=== PATIENT | female | born 1960 | race Caucasian/White ===

== ENCOUNTER 2019-08-07 01:24 | Inpatient (IN) ==
[2019-08-07] MEDS ORDERED: REGLAN ONE (07:47)
[2019-08-07] MEDS ORDERED: PEPCID ONE (07:47)
[2019-08-07] MEDS ORDERED: COLACE ONE (07:47)
[2019-08-07] MEDS ORDERED: LYRICA ONE (07:48)
[2019-08-07] MEDS ORDERED: CELEBREX ONE (07:48)
[2019-08-07] MEDS ORDERED: KEFZOL 1 GM/D5W 2 GM/100 ML IVPB ONE (07:48)
[2019-08-07] MEDS ORDERED: LR 1,000 ML ONE (07:48)
[2019-08-07] MEDS ORDERED: MARCAINE 0.25% PF/EPI 1:200,000 ONE (08:04)
[2019-08-07] MEDS ORDERED: DURAMORPH ONE (08:04)
[2019-08-07] MEDS ORDERED: EXPAREL 1.3% ONE (08:04)
[2019-08-07] MEDS ORDERED: TORADOL ONE (08:04)
[2019-08-07] MEDS ORDERED: CYKLOKAPRON 1,000 MG/NS 1,000 MG/100 ML IVPB ONE (08:04)
[2019-08-07] MEDS ORDERED: SODIUM CHLORIDE 0.9% ONE (08:04)
[2019-08-07] MEDS ORDERED: VERSED ONE (08:29)
[2019-08-07] MEDS ORDERED: DIPRIVAN 1% 500 MG/50 ML BOTTLE ONE (08:30)
[2019-08-07] MEDS ORDERED: FENTANYL ONE (08:46)
[2019-08-07] MEDS ORDERED: NEO-SYNEPHRINE ONE (09:14)
[2019-08-07] MEDS ORDERED: ROBINUL ONE (09:17)
[2019-08-07] MEDS ORDERED: DIPRIVAN 1% ONE (10:02)
[2019-08-07] MEDS ORDERED: OFIRMEV 1000 MG/ISOTONIC SOLN 1,000 MG/100 ML BOTTLE ONE (10:05)
[2019-08-07] MEDS ORDERED: ZOFRAN ONE (10:15)
[2019-08-07] MEDS ORDERED: DECADRON ONE (10:15)
[2019-08-07 11:26] LABS: URINE SOURCE CATH
[2019-08-07] MEDS ORDERED: NS 1,000 ML ONE (11:27)
[2019-08-07 11:33] LABS: BILIRUBIN URINE NEGATIVE (NEGATIVE); BLOOD URINE NEGATIVE (NEGATIVE); COLOR YELLOW; GLUCOSE URINE NEGATIVE (NEGATIVE); KETONE URINE NEGATIVE (NEGATIVE); LEUKOCYTES URINE NEGATIVE (NEGATIVE); NITRITE URINE NEGATIVE (NEGATIVE); PROTEIN URINE NEGATIVE (NEGATIVE); SP GRAVITY URINE 1.016; TURBIDITY URINE CLEAR (CLEAR); UR EPITHELIAL CELLS <10 /HPF (<10); URINE BACTERIA NEGATIVE /HPF; URINE RBC <10 /HPF (<10); URINE WBC <10 /HPF (<10); UROBILINOGEN URINE NORMAL (NORMAL)
[2019-08-07] MEDS: NS 1,000 ML IV SCH (13:06)
[2019-08-07] MEDS ORDERED: ZOFRAN ODT PO PRN (13:15)
[2019-08-07] MEDS ORDERED: MORPHINE IV PRN ×3 (13:15)
[2019-08-07] MEDS: ULTRAM PO SCH ×2 (13:32→21:11)
[2019-08-07] MEDS ORDERED: CYKLOKAPRON 1,000 MG in NS 100 ML IV ONE (15:00)
[2019-08-07] MEDS: TYLENOL PO SCH ×2 (16:08→22:36)
[2019-08-07] MEDS: KEFZOL 2 GM/D5W 2 GM/50 ML IVPB IV SCH (16:40)
[2019-08-07] MEDS: OXY IR PO PRN ×2 (18:45→22:36)
[2019-08-07] MEDS: CELEBREX PO SCH (21:14)
[2019-08-07] MEDS: COLACE PO SCH (21:14)
[2019-08-07] MEDS: PERIDEX MT SCH (21:14)
[2019-08-08] MEDS: KEFZOL 2 GM/D5W 2 GM/50 ML IVPB IV SCH (00:03)
[2019-08-08] MEDS: NS 1,000 ML IV SCH ×2 (00:04→08:52)
[2019-08-08 06:49] LABS: HEMATOCRIT 29.7 % (37.0-47.0); HEMOGLOBIN 9.4 g/dL (12.0-16.0)
[2019-08-08] MEDS: OXY IR PO PRN ×3 (06:56→15:49)
[2019-08-08] MEDS ORDERED: SYNTHROID PO SCH (07:00)
[2019-08-08 07:16] LABS: AGAP 9; BUN 14 mg/dL (8-22); CALCIUM 8.6 mg/dL (8.8-10.2); CHLORIDE 103 mmol/L (98-107); COSMO 276; CREATININE 0.8 mg/dL (0.5-0.9); ESTIMATED GFR > 60; GLUCOSE 137 mg/dL (70-104); POTASSIUM 4.2 mmol/L (3.5-5.1); SODIUM 137 mmol/L (136-145); TCO2 25 mmol/L (25-35)
[2019-08-08] MEDS: ULTRAM PO SCH ×3 (07:39→13:18)
[2019-08-08] MEDS: COLACE PO SCH (08:10)
[2019-08-08] MEDS: PERIDEX MT SCH (08:10)
[2019-08-08] MEDS: CELEBREX PO SCH (08:12)
[2019-08-08] MEDS: TYLENOL PO SCH ×3 (08:13→09:50)
[2019-08-08] MEDS ORDERED: WELLBUTRIN XL PO SCH (09:00)
[2019-08-08] MEDS ORDERED: PEPCID PO SCH (09:00)
[2019-08-08] MEDS ORDERED: LEXAPRO PO SCH (09:00)
[2019-08-08] MEDS ORDERED: ASPIRIN PO SCH (09:00)
[2019-08-08] MEDS ORDERED: SINGULAIR PO SCH (09:00)
[2019-08-08] MEDS: ZOFRAN IV PRN ×2 (09:51→15:49)
[2019-08-08 12:48] VITALS: BP 109/95
== END 2019-08-08 16:23 | disposition home or self-care (01) | DRG 470 ==
LOC: SURHOLD 01:24 → 4N 10:02
PROVIDERS: ADMIT Orthopaedic Surgery Adult Reconstructive Orthopaedic Surgery; ATTEND Orthopaedic Surgery Adult Reconstructive Orthopaedic Surgery

== ENCOUNTER 2019-08-17 14:28 | Day surgery (SDC) ==
[2019-08-17 15:36] LABS: HEMOGLOBIN 8.6 g/dL (12.0-16.0); MCH 30.6 PG (27-31); MCHC 30.7 g/dL (33-37); MCV 99.6 FL (81-99); MPV 7.9 FL (7.4-10.4); RBC 2.81 XMIL (4.2-5.4); RDW 18.2 % (11.5-14.5); WBC 13.02 X1000 (4.8-10.8)
[2019-08-17] MEDS ORDERED: NS 500 ML ONE (17:02)
[2019-08-17 20:29] VITALS: BP 138/70
== END 2019-08-17 20:33 | disposition home or self-care (01) ==
LOC: INF 14:28 → 3N 15:25 → INTOOBSV 15:25 → INF 20:33
PROVIDERS: ATTEND Orthopaedic Surgery Adult Reconstructive Orthopaedic Surgery

== ENCOUNTER 2019-10-17 13:41 | Inpatient (IN) ==
[2019-10-17] MEDS ORDERED: ZOFRAN IV PRN (14:46)
[2019-10-17] MEDS ORDERED: NS 1,000 ML IV ONE (14:46)
[2019-10-17] MEDS ORDERED: NORCO-7.5 PO PRN (14:46)
[2019-10-17] MEDS ORDERED: TYLENOL PO PRN (14:46)
[2019-10-17] MEDS ORDERED: NS 1,000 ML IV SCH (15:00)
--- NOTE | 2019-10-17 15:01 | EKG Report ---
Test Performed on : 10/17/2019 2:52:36 PM Test Reason : chest pain Blood Pressure : / mmHG Vent. Rate : 079 BPM Atrial Rate : 079 BPM P-R Int : 134 ms QRS Dur : 090 ms QT Int : 362 ms P-R-T Axes : 046 020 046 degrees QTc Int : 415 ms Normal sinus rhythm. Normal ECG No previous ECGs available Confirmed by Te Kerr MD ([id number]) on 10/18/2019 8:41:02 AM
[2019-10-17] MEDS ORDERED: BENADRYL CREAM TOP PRN (15:26)
[2019-10-17 15:44] LABS: BASO# 0.12 X1000 (0.0-0.2); BASO% 1.7 % (0.0-0.8); EOS# 1.01 X1000 (0.0-0.7); HEMATOCRIT 33.7 % (37.0-47.0); HEMOGLOBIN 10.2 g/dL (12.0-16.0); LYMPH# 0.46 X1000 (1.2-3.4); LYMPH% 6.4 % (20.5-51.1); MCH 26.8 PG (27-31); MCHC 30.3 g/dL (33-37); MCV 88.5 FL (81-99); MONO# 0.61 X1000 (0.11-0.59); MONO% 8.4 % (1.7-9.3); MPV 8.5 FL (7.4-10.4); NEUT# 5.04 X1000 (1.4-6.5); NEUT% 69.5 % (42.2-75.2); PLT 351 X1000 (130-400); RBC 3.81 XMIL (4.2-5.4); RDW 15.1 % (11.5-14.5); WBC 7.24 X1000 (4.8-10.8)
[2019-10-17 16:02] LABS: INR 0.98; PROTIME 13.1 Seconds (11.0-16.0)
--- NOTE | 2019-10-17 16:02 | Diag Imaging Result Doc PS360 ---
EXAM: CHEST-2 VIEWS 10/17/2019 HISTORY: fever TECHNIQUE: Two views the chest COMMENT: There is a PICC line on the left with its tip in the superior vena cava. The heart size and primary vascularity are within normal limits. Compared to 09/05/2013 considering differences in technique there has been no significant change. IMPRESSION: No acute disease. Electronically signed by Kendall Mccoy 10/17/2019 3:59 PM
[2019-10-17 16:03] LABS: PTT 31.4 Seconds (22.3-41.8)
[2019-10-17 16:32] LABS: ALB/GLOB RATIO 1.4; ALBUMIN 3.6 g/dL (3.5-5.0); CALCIUM 8.7 mg/dL (8.8-10.2); CREATININE 3.2 mg/dL (0.5-0.9); MAGNESIUM 1.8 mg/dL (1.5-2.7); POTASSIUM 4.5 mmol/L (3.5-5.1); TOTAL BILIRUBIN 0.16 mg/dL (0.20-1.00); TOTAL PROTEIN 6.1 g/dL (6.3-8.3)
--- NOTE | 2019-10-17 16:49 | Diag Imaging Result Doc PS360 ---
EXAM: US RENAL 2 (RETROPER) COMPLETE 10/17/2019 HISTORY: rock TECHNIQUE: Renal ultrasound COMMENT: The study is suboptimal technically. This is presumably due to the patient's body habitus. The kidneys are 11.7 x 5.9 x 7.2 cm on the right and 13.3 x 6.8 x 7.1 cm on the left. There is no evidence of hydronephrosis or mass. The bladder is apparently empty and is not visualized. IMPRESSION: No evidence of obstructive uropathy. Electronically signed by Kendall Mccoy 10/17/2019 4:47 PM
[2019-10-17 18:14] LABS: URINE SOURCE CLEAN CATCH
[2019-10-17 18:33] LABS: UR SODIUM 45 mmoll; UR UREA NITROGEN RANDOM 252 mg/dL
[2019-10-17 18:37] LABS: UR CREAT RANDOM 59.4 mg/dL (11-20); UR PROT RANDOM 21.9 mg/dL
[2019-10-17 18:38] LABS: BILIRUBIN URINE NEGATIVE (NEGATIVE); BLOOD URINE NEGATIVE (NEGATIVE); COLOR YELLOW; GLUCOSE URINE NEGATIVE (NEGATIVE); KETONE URINE NEGATIVE (NEGATIVE); LEUKOCYTES URINE NEGATIVE (NEGATIVE); NITRITE URINE NEGATIVE (NEGATIVE); PROTEIN URINE 30 mg/dL (NEGATIVE); SP GRAVITY URINE 1.009; TURBIDITY URINE CLEAR (CLEAR); UROBILINOGEN URINE NORMAL (NORMAL)
[2019-10-17 18:39] LABS: UR EPITHELIAL CELLS <10 /HPF (<10); URINE BACTERIA NEGATIVE /HPF; URINE RBC <10 /HPF (<10); URINE WBC <10 /HPF (<10)
--- NOTE | 2019-10-17 19:11 | HISTORY AND PHYSICAL ---
CHIEF COMPLAINT: Fever, soreness in the throat, and chills. 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 In the emergency room, she was found to be afebrile. She had diffuse rash involving entire body surface area and marked eosinophilia, so the hospitalist team was consulted for further management. The patient underwent right hip anterior arthroplasty for degenerative joint disease in July 2019. Her postoperative course was complicated by wound dehiscence requiring wound VAC, which later on the wound started draining, requiring debridement and irrigation of the right total hip with implantation of antibiotic beads on 09/14/2019, though the wound culture only grew diphtheroids. Considering she had drainage from the wound, she was started on long-term intravenous antibiotics by Infectious Disease team through left-sided PICC line. When patient was inside the hospital in August 2019, initially she received a couple doses of intravenous daptomycin which was later on changed to intravenous vancomycin and intravenous cefepime at the time of discharge. The patient has been on intravenous vancomycin and cefepime since then, until around 10/08/2019 when the blood work detected she had acute kidney injury with a rise in creatinine. At that point, her vancomycin was stopped and she was started on intravenous daptomycin. However, right after receiving one dose of intravenous daptomycin, she started developing generalized body rash, so both daptomycin and cefepime where stopped. Her last dose of intravenous vancomycin was around 10/08/2019. Last dose of intravenous daptomycin and intravenous cefepime have been around 10/10/2019. The rash was involving the entire body surface area and was itchy. Charisse Diana did try intravenous dexamethasone 24 hours prior to presentation which did not help with the rash. This morning, she started developing fever and chills, so decided to come to the hospital. She denies any sick contacts. She denies any upper respiratory infection related symptoms except mild soreness in the throat. She denies any such episodes before. She denies any chest pain or shortness of breath. REVIEW OF SYSTEMS: Negative for chest pain. Negative for shortness of breath. Negative for cough. Positive for nausea. Positive for episode of vomiting yesterday. Negative for abdominal pain. Negative for burning urination. Negative for increased frequency of micturition. Positive for diarrhea. Positive for headache. PAST MEDICAL HISTORY: 1. Hypothyroidism. 2. Depression. 3. Overactive bladder. PAST SURGICAL HISTORY: 1. Cholecystectomy. 2. Left mandibular salivary gland surgery. 3. Tonsillectomy. SOCIAL HISTORY: Denies any tobacco use. Drinks alcohol occasionally. Last drink was 2 months ago. Denies recreational substance use. Works as a physician. FAMILY HISTORY: I did not obtain. CURRENT MEDICATIONS: 1. Levothyroxine 150 mcg daily. 2. Bupropion extended release 300 mg daily. 3. Citalopram 10 mg daily. 4. Myrbetriq 25 mg daily. MEDICATION ALLERGIES: Likely daptomycin, vancomycin, and cefepime. CURRENT VITAL SIGNS: Temperature 99.4 degrees, pulse 88, respiratory rate 18, blood pressure 138/90, saturating well on room air. PHYSICAL EXAMINATION: GENERAL: Not in any acute distress. ORAL CAVITY: Oral cavity has mild pharyngeal congestion. No cervical lymphadenopathy. LUNGS: Air entry bilaterally equal. No wheeze or crackles. HEART: S1, S2 normal. No murmur or gallop. ABDOMEN: Soft, nontender. Active bowel sounds. No hepatosplenomegaly. EXTREMITIES: Mild lower extremity edema. SKIN: She has diffuse maculopapular pruritic rash affecting bilateral upper extremities, lower extremities, and torso. NEUROLOGIC: She is alert and oriented x3. She has been able to reposition herself in the bed. LABS: WBC of 7000, hemoglobin of 10.2, platelet count of 351,000. Marked eosinophilia of 14%. She does have INR of 0.9. BUN is 29, creatinine 3.2. ProBNP is 2400. MICROBIOLOGY: No positive data so far. ASSESSMENT AND PLAN: 1. Fever, diffuse maculopapular pruritic rash, and chills. Differential includes bacteremia versus other etiology. The potential source of bacteremia could be right hip joint. However, she denies any worsening right hip joint pain. She has been fairly active. There is no increasing drainage from the right hip joint wound site on my evaluation. There appears to be mild induration in the right lateral thigh wound. Drug reaction with eosinophilia with systemic symptoms. DRESS (Drug reaction with Eosinophilia and Systemic Symptoms) syndrome is also a possibility considering the timing of her rash 2 weeks later and systemic symptoms. 2. Right anterior hip arthroplasty in July 2019, complicated by wound dehiscence and drainage. Her last dose of antibiotics was a week ago. I will follow up with blood cultures. I will hold off antibiotics for now. I will start antibiotics if she has bacteremia or recurrence of fever. Possible antibiotic choices could be intravenous Zyvox, intravenous Levaquin, or a combination of both. Intravenous aztreonam is also a possibility. I will avoid vancomycin, cephalosporins, and daptomycin at the moment. 3. Diffuse maculopapular rash with eosinophilia. This is drug rash. Daptomycin is the most likely culprit. However, she still has elevated vancomycin trough level and she has been on intravenous cefepime. I will avoid those antibiotics, and start her on oral prednisone as well as oral Benadryl. 4. Acute Kidney failure, likely thought to be related to vancomycin induced nephrotoxicity. I will follow up with urine electrolytes and ultrasound kidneys. She also has history of overactive bladder but denies any urinary retention. 5. Hypothyroidism. 6. Depression. 7. Overactive bladder. I will resume her home medication. Plan of care was extensively discussed with Dr. Ortiz. All of her questions were satisfactorily answered. I will also consult Nephrology, Orthopedics, and Infectious Disease. cc: Rosalino Rose MD MTDD
--- NOTE | 2019-10-17 19:49 | INFECTIOUS DISEASE PROGRESS NO ---
DATE: 10/17/2019 HISTORY OF PRESENT ILLNESS: The patient has a history of right total hip replacement for degenerative joint disease, done in July by Dr. Estevez. Subsequently, she developed hematoma with wound dehiscence and had a debridement with antibiotic bead placement done on 09/14/2019. That day, we inserted a PICC line and started her on daptomycin which she received for the weekend until we determined that diphtheroids had grown from her right hip. On 09/17/2019, we stopped the daptomycin and started her on IV vancomycin which she continued through 10/08/2019. On 09/20/2019, she came into our office very upset because there was a lot of drainage from her hip. We took a swab which showed no growth, and on 09/24/2019 we added cefepime to her IV regimen to go along with the vancomycin. On 10/08/2019, we stopped her vancomycin due to a spike in her creatinine and started her back on daptomycin. Then, on 10/10/2019, she developed a rash to her left upper arm and trunk. At that time, we stopped all antibiotics and started giving her IV fluids to try to bring down her elevated creatinine. She has been without any antibiotics since 10/10/2019. A subsequent check of her creatinine showed a continued elevation, so we got Dr. العلي involved in her care. Today, she called stating there was a sudden bout of shaking chills with a temperature of 101 degrees, so we direct admitted her to the hospital. At this point, she has a diffuse erythematous rash from head to toe. There is concern for the possibility of drug fever. However, the patient has had a hip replacement with previous dehiscence and drainage, so this may be a hip infection causing the fever. MEDICATIONS: As mentioned above, the patient has received daptomycin, cefepime, and vancomycin. Due to her elevated creatinine, a recheck of her vancomycin trough 1 week after stopping the vancomycin showed a continued elevation in her trough level, at 17.8. PHYSICAL EXAMINATION: Vital Signs: Temperature is 99.4 degrees, pulse rate 88, respiratory rate 15, blood pressure 138/90. O2 saturation is 100% on room air. General: This is an obese, middle- aged female. She is lying in the bed, currently complaining of some nausea and itching from her rash. HEENT: Atraumatic, normocephalic. Oral mucous membranes are pink and moist. Conjunctivae are pink. Neck: Supple. Trachea is midline. Cardiovascular: Heart rate is regular. S1, S2 noted. Respiratory: Lung sounds are bilaterally clear to auscultation. No work of breathing is noted. Abdomen: Soft, obese, and nontender. Bowel sounds are active. Neurologic: She is awake, alert, oriented, and able to ambulate independently. Integumentary: Skin is warm and dry with an erythematous diffuse rash noted from head to toe. There is a PICC line in place to her left upper arm. That site is without edema, erythema, or drainage. The incision to her right hip has 2 small areas that are just mildly open. One has a dry white wound bed, and the other has a mild white/red wound bed with mild, pink drainage. LABORATORY AND X-RAY: Today, her white count is 7.24, hemoglobin 10.2, platelet count 351,000. Creatinine is 3.2. GFR is 15. Total bilirubin is 0.16. AST 26, ALT 32, alkaline phosphatase 77. Creatine kinase is 38. Vancomycin trough from 2 days ago was 17.8. Renal ultrasound done today shows no evidence of obstructive uropathy. An EKG shows normal sinus rhythm on the unconfirmed report. Chest x-ray done today shows no acute disease. Blood cultures and throat culture are pending. A rapid throat group A strep antigen was negative. 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 Dr. العلي and Dr. Estevez have been consulted. I have taken a culture of her right hip incision. Dr. Rose and I agree that holding antibiotics and awaiting the culture results would be reasonable at this point. COMORBIDITIES: for the patient include obesity, degenerative joint disease, and depression with anxiety. Dictated by RANI Rick for Isaiah Murcia MD cc: Isaiah Murcia MD [facility]
--- NOTE | 2019-10-17 20:00 | NEPHROLOGY CONSULTATION ---
DATE: 10/17/2019 REASON FOR CONSULTATION: Acute kidney injury. 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 She has a history of hypertension, but this problem has resolved with weight loss. Her recent history has been complicated. She underwent total hip arthroplasty for management of osteoarthritis, unfortunately developed a wound infection that required multiple antibiotics and ultimately surgery in late August. Her medication history is summarized by Pinky Spaulding. She most recently was taking vancomycin, cefepime. Her creatinine was normal as recently as October 01, but on October 08, her creatinine ta to 2.3. Vancomycin level was elevated on the to 67.8. This medication was changed to daptomycin and the cefepime was continued. She developed a diffuse maculopapular rash which is confluent across the chest and abdomen. Intensely pruritic. No purpura. No vesicles. I discussed the case with Dr. Ortiz on the telephone as well as with Pinky Spaulding, and we had a plan to monitor her renal function with the presumption that her kidney disease was related to vancomycin. Her urinalysis performed in the office had minimal urine protein and red blood cells. Today, she was able to work, but ultimately developed a fever with rigors and therefore was brought to the emergency room for admission. PAST MEDICAL HISTORY: As above. HOME MEDICATIONS: Include levothyroxine, bupropion, celecoxib, escitalopram, montelukast, hydrocodone, ibuprofen. ALLERGIES: None. SOCIAL HISTORY: Not otherwise contributory. FAMILY HISTORY: Not otherwise contributory. REVIEW OF SYSTEMS: Not otherwise contributory. PHYSICAL EXAMINATION: Blood pressure 138/90, heart rate 88, respirations 15, temperature 99.4 degrees.General: Middle-aged, white female, lying in bed in no distress. Skin: Warm and dry with a diffuse and confluent maculopapular rash worse on the trunk. Again, no vesicles, no palpable purpura. No desquamation in the mouth or of the skin. Pupils are equal. Conjunctivae are pink. Oropharynx is clear. Normal tongue. Normal teeth. Neck: Supple. Trachea is midline. Neck vein distention is present with hepatojugular reflux. PMI nondisplaced. Regular rate and rhythm with no murmurs, rubs, gallops. Lungs: Equal excursion. Equal breath sounds. No crackles or wheezes. No accessory muscle use or retractions. Abdomen: Soft, nontender. Bowel sounds are present. No organomegaly, masses, bruits. Extremities: Trace to 1+ edema. No clubbing or cyanosis. Neurologic: Grossly nonfocal. IMPRESSION/PLAN: Acute kidney injury. Vancomycin-induced, nephrotoxic acute tubular necrosis seems the most likely diagnosis. Her creatinine peaked on the 24th, and has improved slightly to 3.2. However, given her rash, it is concerning that she could have allergic interstitial nephritis, which could perhaps require steroids for treatment. We will recheck UA and urine protein. Nonsteroidals have been discontinued. Vancomycin is discontinued. Cefepime is discontinued. Consider renal biopsy. cc: Issa العلي MD
[2019-10-17] MEDS: HYDROCORTISONE 2.5% LOTION TOP SCH (22:15)
[2019-10-17] MEDS: BENADRYL PO PRN (22:15)
[2019-10-18 06:58] LABS: BASO# 0.05 X1000 (0.0-0.2); BASO% 0.5 % (0.0-0.8); EOS# 1.11 X1000 (0.0-0.7); EOS% 11.6 % (0.0-10.0); HEMATOCRIT 36.1 % (37.0-47.0); HEMOGLOBIN 11.1 g/dL (12.0-16.0); IMM GRAN# 0.04 X1000 (0.0-0.04); IMM GRAN% 0.4 % (0.0-0.5); LYMPH# 0.57 X1000 (1.2-3.4); MCH 27.3 PG (27-31); MCHC 30.7 g/dL (33-37); MCV 88.7 FL (81-99); MONO# 0.56 X1000 (0.11-0.59); MONO% 5.9 % (1.7-9.3); MPV 8.5 FL (7.4-10.4); NEUT# 7.21 X1000 (1.4-6.5); NEUT% 75.6 % (42.2-75.2); PLT 355 X1000 (130-400); RBC 4.07 XMIL (4.2-5.4); RDW 15.6 % (11.5-14.5); WBC 9.54 X1000 (4.8-10.8)
[2019-10-18] MEDS: BENADRYL PO PRN (07:01)
[2019-10-18] MEDS: SYNTHROID PO SCH (07:01)
[2019-10-18 07:41] LABS: ALBUMIN 2.9 g/dL (3.5-5.0); CALCIUM 8.5 mg/dL (8.8-10.2); CREATININE 3.5 mg/dL (0.5-0.9); PHOSPHORUS 3.8 mg/dL (2.7-4.5); POTASSIUM 4.9 mmol/L (3.5-5.1)
[2019-10-18] MEDS: HYDROCORTISONE 2.5% LOTION TOP SCH ×3 (07:55→21:49)
[2019-10-18] MEDS ORDERED: PREDNISONE PO SCH (09:00)
[2019-10-18] MEDS: LEXAPRO PO SCH (09:34)
[2019-10-18] MEDS: MYRBETRIQ E.R. PO SCH (09:34)
[2019-10-18] MEDS: WELLBUTRIN SR PO SCH (09:34)
--- NOTE | 2019-10-18 10:33 | Extremity Venous Study ---
PROCEDURE NAME: Venous U/S Bilateral Legs - 10/17/2019 QUALITY CONTROL OPERATOR: Amanda. REQUESTING PHYSICIAN: Dr. Mendoza. INDICATIONS: Elevated D-dimer 1 month postoperative and allergic reaction. FINDINGS: Deep superficial veins of bilateral lower extremities were visualized along their course. Vessels are compressible with forward flow and no evidence intraluminal thrombus. SUMMARY: No deep or superficial venous thrombosis seen in bilateral lower extremities. cc: MD Yulissa Willoughby CRNP
--- NOTE | 2019-10-18 12:59 | ORTHOPAEDICS CONSULTATION ---
DATE: 10/18/2019 CHIEF COMPLAINT: Fever with sore throat and chills. HISTORY OF PRESENT ILLNESS: This is a 59-year-old female with a past medical history of hypothyroidism, depression, overactive bladder, recent right hip anterior arthroplasty back in July that she has been having problems with and becoming infected. She has been treated with Infectious Disease with multiple antibiotics. The wound has begun healing and has almost healed up. She started running a fever up to about 101 degrees and came to the emergency department to be evaluated. Her last vancomycin was around 10/08/2019. Orthopedics was consulted to come see the patient. REVIEW OF SYSTEMS: Twelve point review of systems were performed. Pertinent positives listed in the HPI. She also presented with a rash on her entire body. PAST MEDICAL HISTORY: Listed in the HPI. PAST SURGICAL HISTORY: She has had a cholecystectomy, left mandibular salivary gland surgery, tonsillectomy, right total hip arthroplasty. SOCIAL HISTORY: Denies tobacco or drug use. Drinks alcohol occasionally. MEDICATIONS: She takes levothyroxine 150 mcg daily, Wellbutrin 300 mg daily, citalopram 10 mg daily, Myrbetriq 25 mg daily. ALLERGIES: She is likely allergic to daptomycin, vancomycin, and cefepime. PHYSICAL EXAMINATION: Vital Signs: Temperature 99.6 degrees, pulse rate 93, respiratory rate 16, blood pressure 144/76, oxygen saturation 98% on room air. General: The patient is awake, alert, sitting on his bed, in no acute distress. HEENT: Head is atraumatic, normocephalic. Eyes are equal, round, reactive. Neck: Supple. Chest: Equal chest expansion, rise and fall. Cardiovascular: There is regular rate and rhythm. Abdomen: Soft, nontender. Extremities: Right lower extremity exam, her incision from the right total hip arthroplasty seems to be healing. There are 2 small areas that are still not fully dried up at this time. There is no palpable abscess. There is minimal drainage. Skin: There is a diffuse maculopapular rash to the bilateral upper and lower extremities as well as her abdomen and back. LABORATORY DATA: White blood cells 9.54, red blood cell 4.07, hemoglobin 11.1, hematocrit 36.1, platelets 355,000. Her D-dimer was elevated at 1.91. INR 0.98. Sodium 135, potassium 4.9, chloride 104, carbon dioxide 19, BUN 29, creatinine 3.5, calcium is 8.5, albumin is 2.9. Urine random creatinine is 59.4. DIAGNOSTICS: Ultrasound of bilateral legs was negative for DVT. Chest x-rays showed no acute disease pattern. Renal ultrasound showed no evidence of obstructed uropathy. ASSESSMENT: Fever with diffuse red maculopapular rash to entire body and possible reaction from vancomycin, right total hip arthroplasty recent infection, kidney failure. PLAN: At this time, her wound seems to be healing nicely with 2 small areas that are still needing to be dried up. There is no obvious reason to aspirate the hip at this time. The maculopapular rash is probably due to the vancomycin. We will obtain a vancomycin trough and get her level today. We would be comfortable using antihistamines to help control her rash. We strongly recommend against using steroids at this time because of the possibility of her infection to come back in the hip. If this is needed to improve her kidney function, then it may be considered, risks versus benefits. We will need to see her in the office Tuesday or Tuesday for a recheck on her hip. Dictated by RANI Hoang for Jordon Estevez MD cc: RANI Hoang MD
--- NOTE | 2019-10-18 13:19 | PROGRESS NOTE ---
DATE: 10/18/2019 INTERVAL HISTORY: No acute events overnight. She did have a temperature of 99.9 degrees early in the morning. 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 She complains of generalized itching. Her nausea is better. She has not had any vomiting or abdominal pain. She has not had any bowel movements. We discussed about DRESS syndrome. We discussed about possible etiologies of the kidney failure. We discussed about starting high-dose prednisone and I answered all of her questions. VITAL SIGNS: Temperature 99.6 degrees, pulse 93, respiratory 16, blood pressure 144/76. She is saturating 98% on room air. 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 Oral cavity is moist. Lungs: Air entry bilaterally equal. No wheeze or crackles. S1, S2 normal. No murmur or gallop. Abdomen: Soft, nontender. Extremities: Mild lower extremity edema. Neurologic: She is alert and oriented x3. LABS: Suggestive of no leukocytosis. Hemoglobin of 11.1. She does have persistent eosinophilia. Creatinine of 3.5, albumin of 2.9. ProBNP of 2400 yesterday. Microbiology: No positive data so far. IMAGING: Renal ultrasound performed yesterday did not have any evidence of obstructive uropathy. Extremity venous studies performed yesterday did not have any DVT or SVT in bilateral lower extremities. ASSESSMENT AND PLAN: 1. Drug reaction with eosinophilia and systemic symptoms. DRESS (drug rash with eosinophilia and systemic symptoms) syndrome likely in the setting of use of intravenous antibiotics; vancomycin could be culprit. She was also on intravenous cefepime and daptomycin. I will start her on low dose oral steroids and follow-up eosinophilia. I will also treat her symptomatically with Benadryl, as needed. 2. Fever. This could be in the setting of DRESS (drug rash with eosinophilia and systemic symptoms) syndrome versus bacteremia. Right lateral thigh previous arthroplasty wound has not had increasing drainage and she denies any undue pain. I will follow up with final blood culture data. If she develops fever, then I would consider starting her on intravenous Zyvox and intravenous Levaquin. 3. Acute kidney injury with elevated vancomycin trough level outpatient. Acute tubular necrosis versus allergic interstitial nephritis are possibilities. Urine eosinophil smear was unremarkable. Appreciate Nephrology recommendations. Ultrasound of the renals was also unremarkable. 4. Others. Continue home levothyroxine for hypothyroidism, bupropion and escitalopram for history of depression, mirabegron for history of overactive bladder. DISPOSITION: Monitor patient inside the hospital as we await final blood culture results and recurrence of fever. 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 All of her questions have been satisfactorily answered. cc: MD ROBYN Turner
[2019-10-18] MEDS: PREDNISONE PO SCH (13:50)
--- NOTE | 2019-10-18 16:30 | PROVIDER PROGRESS NOTE ---
Progress Note Subjective: Voices generalized itching. She denies shortness of breath or chest pain. Objective: temperature 99.6, pulse 93, respirations 16, blood pressure 144/76, 02 sat 98% on room air. General: Obese White female lying in bed in no acute distress. HEENT: normocephalic, atraumatic, pupils equal and reactive, mucous membranes moist. Skin: diffuse red raised rash, non vesicular. Non weeping. Neck: supple, No JVD Cardiovascular: S1S2, regular rate and rhythm. No murmur or gallop. Respiratory: lungs clear with equal air entry anteriorly Abdomen: soft, obese, nontender, nondistended. Bowel sounds present. : not inspected Extremities: 1+ pitting edema to BLE. Generalized edema to left upper arm with PICC in place. Neurological: alert and oriented to person place and time. Labs: WBC 9.54, hemoglobin 11.1, hematocrit 36.1, platelet count 355, sodium 135, potassium 4.9, chloride 104, carbon dioxide 19, BUN 29, creatinine 3.5, albumin 2.9. Intake zero recorded in, output 300. Impression: Acute kidney injury, likely nephrotoxic acute tubular necrosis, vancomycin- induced. Possibly allergic interstitial nephritis. Her Creatinine has gone from 3.2 to 3.5 today. Her rash appears to have spread and is not plateaued. Her FENA and FEUA score suggest ATN. We discussed possibly doing a biopsy today but she requests that we treat her with steroids without the biopsy if her Creatinine remained elevated. Prednisone 60 mg started. Blood pressure. In goal Fluid volume. Euvolemic. Anemia. Stable. Electrolytes and acid base balance. Stable. Nutrition. Adequate. Ambulation. PT in place. Medication review. No changes.
[2019-10-19 07:02] LABS: BASO# 0.07 X1000 (0.0-0.2); BASO% 0.7 % (0.0-0.8); EOS% 7.7 % (0.0-10.0); HEMATOCRIT 33.8 % (37.0-47.0); HEMOGLOBIN 10.3 g/dL (12.0-16.0); IMM GRAN# 0.04 X1000 (0.0-0.04); IMM GRAN% 0.4 % (0.0-0.5); LYMPH# 0.78 X1000 (1.2-3.4); LYMPH% 7.6 % (20.5-51.1); MCH 26.8 PG (27-31); MCHC 30.5 g/dL (33-37); MONO# 0.68 X1000 (0.11-0.59); MONO% 6.6 % (1.7-9.3); MPV 8.5 FL (7.4-10.4); NEUT# 7.96 X1000 (1.4-6.5); PLT 385 X1000 (130-400); RBC 3.84 XMIL (4.2-5.4); RDW 15.4 % (11.5-14.5); WBC 10.33 X1000 (4.8-10.8)
[2019-10-19 07:29] LABS: CALCIUM 8.8 mg/dL (8.8-10.2); CREATININE 3.9 mg/dL (0.5-0.9); POTASSIUM 4.9 mmol/L (3.5-5.1)
[2019-10-19] MEDS: SYNTHROID PO SCH (07:49)
[2019-10-19] MEDS: HYDROCORTISONE 2.5% LOTION TOP SCH ×2 (09:31→22:35)
[2019-10-19] MEDS: PREDNISONE PO SCH (09:34)
[2019-10-19] MEDS: LEXAPRO PO SCH (09:34)
[2019-10-19] MEDS: MYRBETRIQ E.R. PO SCH (09:34)
[2019-10-19] MEDS: WELLBUTRIN SR PO SCH (09:44)
--- NOTE | 2019-10-19 10:03 | INFECTIOUS DISEASE PROGRESS NO ---
DATE: 10/19/2019 PRESENT ILLNESS: The patient was admitted with a fever, diffuse rash, and acute kidney injury due to vancomycin toxicity. She is status post right total hip replacement with a subsequent wound dehiscence, debridement and antibiotic bead placement. MEDICATIONS: Her antibiotics have been on hold at this point, and she has been started on steroids. PHYSICAL EXAMINATION: Vital Signs: Temperature is 98.5 degrees, pulse rate 74, respiratory rate 20, blood pressure 142/74, O2 saturation is 99% on room air. General: This is an obese, acutely ill-appearing, middle-aged female. She is sitting up in bed, alert and oriented but mildly tearful. HEENT: Atraumatic, normocephalic. Oral mucous membranes are pink and moist. Conjunctivae are pink. Neck: Supple. Trachea is midline. Cardiovascular: Heart rate is regular, S1-S2 noted. Respiratory: Lung sounds are bilaterally clear to auscultation with no work of breathing noted. Abdomen: Soft, obese and nontender. Bowel sounds are active. Integumentary: She continues to have an erythematous diffuse rash from head to toe. The incision to her right hip has 2 small areas that are mildly open with only a small amount of pink drainage and light red wound beds. The PICC line to her left upper arm has no erythema or drainage, however the entire left upper arm is swollen down to her hand with pitting edema 2 to 3+. LABORATORY AND X-RAY: Today, her white count is 10.33 hemoglobin 10.3, platelet count 385,000. Creatinine is 3.9, GFR 12. Her throat culture has shown no group A strep. Her right hip wound culture is pending. Blood cultures have shown no growth after 48 hours. No imaging reports today. 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 She will be speaking to Dr. العلي later about this. She is being treated with steroids. At this point, still has a diffuse, erythematous rash. During the night, she developed swelling to the left upper extremity which unfortunately may be a DVT since that is her PICC line arm. I have spoken with Dr. Rose and will go ahead and order a venous ultrasound of the left arm. Overnight, she has not had any fever. At this point, we are awaiting the hip wound culture but it is encouraging that the patient has not had much drainage or pain to that hip. Also, blood cultures have been sterile for the last 48 hours. COMORBIDITIES: For the patient include obesity, degenerative joint disease, depression and anxiety. Dictated by RANI Rick for Isaiah Murcia MD cc: Isaiah Murcia MD MTDD
[2019-10-19] MEDS ORDERED: ELIQUIS PO SCH (10:15)
[2019-10-19] MEDS ORDERED: HEPARIN IV ONE (10:33)
[2019-10-19] MEDS ORDERED: HEPARIN IV PRN (10:33)
[2019-10-19 11:06] LABS: INR 1.02; PROTIME 13.5 Seconds (11.0-16.0); PTT 34.9 Seconds (22.3-41.8)
--- NOTE | 2019-10-19 12:25 | PROGRESS NOTE ---
DATE: 10/19/2019 INTERVAL HISTORY: No acute events overnight. She did not have an episode of fever. When the Infectious Disease team evaluated her, she had left upper extremity swelling for which ultrasound was ordered. The preliminary report suggests she has a DVT affecting axillary, brachial and subclavian vein. 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 I discussed with her about her kidney function, DVT treatment and I answered all of her questions. VITAL SIGNS: Temperature 98.6 degrees, pulse 76, respiratory 20, blood pressure 138/58, saturating 100% on room air. PHYSICAL EXAMINATION: General: She is teary during encounter after learning worsening kidney function and DVT. She has diffuse morbilliform rash affecting entire body including torso, back, upper and lower extremities. Lungs: Air entry bilaterally equal. No wheeze or crackles. Cardiovascular: S1, S2 normal. No murmur, rub or gallop. Abdomen: Soft, nontender. No hepatosplenomegaly. Active bowel sounds. Extremities: Mild lower extremity edema. She has significant swelling of the left upper extremity. There are no signs of pus formation or hematoma around the left arm PICC line. While examining the PICC line, I offered her to have a storeroom keeper twice. However, she told me she was okay without any storeroom keeper. I allowed her time to dress back and then I came back and continued the encounter. LABORATORY DATA: Suggestive of WBC 81469, hemoglobin 10.3, platelets 385,000. Her eosinophilia improved to 7%. INR is 1.04, PTT 34.9. She has a BUN of 40, creatinine 3.9, blood glucose 142. MICROBIOLOGY: No positive data so far. IMAGING: No new imaging. ASSESSMENT AND PLAN: 1. 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 I will continue it. I will also keep her on oral Benadryl as needed and topical hydrocortisone as needed. 2. Fever, nausea, sore throat on presentation could be in the setting of DRESS. So far, blood cultures have not shown any growth. Right hip joint wound on presentation did not have active oozing, though there was residual wound which did not heal, but there were no signs of active pus or increasing tenderness. In the future, I would consider intravenous Zyvox and intravenous Levaquin if at all the antibiotic need would arise. 3. Acute kidney injury with elevated vancomycin trough level. Acute tubular necrosis versus allergic interstitial nephritis are possibilities. Nephrology team on board. The plan is likely to monitor her kidney function over the weekend and depending on that, consider biopsy early next week. 4. Left upper extremity PICC line-associated acute deep venous thrombosis. We will remove the PICC line after discussion with Nephrology team. We will start her on intravenous heparin drip. If IV access becomes an issue, I may consider starting her on therapeutic dose of subcutaneous enoxaparin. DISPOSITION: I will continue to monitor patient on the floor. Plan of care discussed with her. I allowed her to ask questions and I answered all of her questions. cc: Rosalino Rose MD MTDD
[2019-10-19] MEDS: HEPARIN 25,000 UNITS/D5W 25,000 UNIT/250 ML IV.SOLN IV SCH (15:27)
--- NOTE | 2019-10-19 20:30 | NEPHROLOGY PROGRESS NOTE ---
DATE: 10/19/2019 SUBJECTIVE: She has now learned that she has a DVT in the left upper extremity associated with her PICC line. Her rash is not any better. Still pruritic. Not sleeping well. OBJECTIVE: Vital Signs: Blood pressure 153/76 heart rate 77, respirations 20, afebrile. Intake 1.5 L. Output 400 mL but incompletely measured. General: No acute distress. Skin: Warm and dry. Diffuse confluent maculopapular rash. Neck: Neck veins are not appreciated. Heart: Regular. No rubs or gallops. Lungs: Equal. No crackles. Abdomen: Soft, nontender. Bowel sounds present. Extremities: 1+ edema especially in the left upper extremity. No clubbing or cyanosis. IMPRESSION: Acute kidney injury. Creatinine is higher today at 3.9, BUN now 40. I again reviewed the diagnostic possibilities with her. I also reviewed my conversation with Dr. Estevez, who is uncomfortable with ongoing high-dose steroids because he is concerned this may impact her wound healing. That is certainly a legitimate concern. I counseled her that we will continue her prednisone over the weekend. If she does not have significant change in fortune, then we will biopsy her kidney on Tuesday for clear diagnosis. We reviewed the endpoints for treatment with dialysis. She does not meet any criteria for dialysis currently. I also discussed management of her DVT in her arm with the patient and with Dr. Rose. I would prefer the use of heparin as opposed to enoxaparin or a NOAC given her possible need for biopsy and dialysis access placement earlier in the week. cc: Issa العلي MD
[2019-10-20] MEDS ORDERED: BENADRYL PO ONE (00:15)
[2019-10-20] MEDS: SYNTHROID PO SCH (06:28)
[2019-10-20 07:01] LABS: ALBUMIN 3.2 g/dL (3.5-5.0); CALCIUM 8.4 mg/dL (8.8-10.2); CREATININE 3.9 mg/dL (0.5-0.9); PHOSPHORUS 4.3 mg/dL (2.7-4.5); POTASSIUM 4.7 mmol/L (3.5-5.1)
[2019-10-20 07:41] LABS: BASO# 0.09 X1000 (0.0-0.2); BASO% 0.6 % (0.0-0.8); EOS# 2.17 X1000 (0.0-0.7); EOS% 14.5 % (0.0-10.0); HEMATOCRIT 33.3 % (37.0-47.0); HEMOGLOBIN 10.1 g/dL (12.0-16.0); IMM GRAN% 0.7 % (0.0-0.5); LYMPH# 1.42 X1000 (1.2-3.4); LYMPH% 9.5 % (20.5-51.1); MCH 26.9 PG (27-31); MCHC 30.3 g/dL (33-37); MCV 88.6 FL (81-99); MONO# 0.66 X1000 (0.11-0.59); MONO% 4.4 % (1.7-9.3); MPV 8.8 FL (7.4-10.4); NEUT# 10.54 X1000 (1.4-6.5); NEUT% 70.3 % (42.2-75.2); PLT 429 X1000 (130-400); RBC 3.76 XMIL (4.2-5.4); RDW 15.8 % (11.5-14.5); WBC 14.98 X1000 (4.8-10.8)
[2019-10-20] MEDS: PREDNISONE PO SCH (08:18)
[2019-10-20] MEDS: WELLBUTRIN SR PO SCH (08:18)
[2019-10-20] MEDS: MYRBETRIQ E.R. PO SCH (08:19)
[2019-10-20] MEDS: LEXAPRO PO SCH (08:19)
[2019-10-20] MEDS ORDERED: BENADRYL PO PRN (10:16)
[2019-10-20] MEDS: HEPARIN 25,000 UNITS/D5W 25,000 UNIT/250 ML IV.SOLN IV SCH (11:54)
[2019-10-20] MEDS: BENADRYL PO PRN (12:02)
[2019-10-20] MEDS: HYDROCORTISONE 2.5% LOTION TOP SCH (12:03)
[2019-10-20] MEDS ORDERED: MIRALAX PO PRN (12:19)
--- NOTE | 2019-10-20 13:02 | NEPHROLOGY PROGRESS NOTE ---
DATE: 10/20/2019 SUBJECTIVE: She is still intensely pruritic. States that her mucous membranes in her mouth are somewhat irregular and rough but no desquamation. OBJECTIVE: Vital Signs: Blood pressure 130/64, heart rate 90, respirations 20, afebrile. General: No acute distress. Skin: Warm and dry with confluent rash on the chest, neck, face, extremities, not bumps. Pupils are equal. Conjunctivae are pink. Oropharynx is clear. No erythema, desquamation, plaques, etc. Heart: Regular. Lungs: Equal. No crackles. Abdomen: Benign. Extremities: 1+ edema. IMPRESSION: Acute kidney injury. ATN versus AIN. Continue prednisone 60 mg a day and plan for kidney biopsy on Tuesday morning. cc: Issa العلي MD
--- NOTE | 2019-10-20 13:38 | PROGRESS NOTE ---
DATE: 10/20/2019 INTERVAL HISTORY: No acute events overnight. 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 We discussed about stable creatinine. We discussed about and I offered her adding other antihistamine. She states that probably it would not work. She complains of constipation and I added MiraLAX to her regimen. VITALS: Temperature 98.1 degrees, pulse 89, respiratory 20, blood pressure 120/54, she is saturating 100% on room air. PHYSICAL EXAMINATION: She has a morbilliform maculopapular rash affecting entire body. Oral cavity is moist. Air entry bilaterally equal. No wheeze, rhonchi or crackles. S1, S2 normal. No murmur, rub or gallop. Abdomen soft, nontender. No lower extremity edema except mild edema extending up to midshin level. Left upper extremity swelling is decreasing. PICC line has been removed. She is alert and oriented x3. LABS: Suggestive of WBC of 14,000, hemoglobin 10.1, platelets 429,000. BUN is 42, creatinine 3.9, albumin is 3.2. Vancomycin trough level was 10. No positive microbiological or new imaging. ASSESSMENT AND PLAN: 1. Drug reaction with eosinophilia and systemic symptoms, DRESS syndrome in the setting of use of multiple intravenous antibiotics including vancomycin, daptomycin and cefepime. 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 2. Fever, nausea, sore throat on presentation which could be in the setting of drug reaction with eosinophilia and systemic symptoms, now improved. 3. Acute kidney injury with elevated vancomycin trough level. Acute tubular necrosis versus allergic interstitial nephritis are possibilities. Nephrology team on board and planning biopsy early next week if her kidney function does not improve. 4. Left upper extremity peripherally inserted central catheter line associated deep venous thrombosis, status post removal. Continue intravenous heparin drip. 5. Right hip arthroplasty in July 2019, status post suspected wound infection. The patient has been on intravenous vancomycin and intravenous cefepime in the past which was changed to intravenous daptomycin; however, she developed rash and kidney failure. She has been off antibiotics for almost 2 weeks now. I will continue to monitor. Appreciate Orthopedic teams recommendations. DISPOSITION: Continue to monitor patient's fluid status. Plan of care discussed with her. All questions have been answered. cc: Rosalino Rose MD MTDD
[2019-10-21] MEDS: HYDROCORTISONE 2.5% LOTION TOP SCH ×2 (01:15→09:39)
[2019-10-21] MEDS: HEPARIN 25,000 UNITS/D5W 25,000 UNIT/250 ML IV.SOLN IV SCH (04:19)
[2019-10-21] MEDS: SYNTHROID PO SCH (06:44)
[2019-10-21 07:49] LABS: ALBUMIN 2.7 g/dL (3.5-5.0); CALCIUM 7.8 mg/dL (8.8-10.2); CREATININE 4.3 mg/dL (0.5-0.9); PHOSPHORUS 3.6 mg/dL (2.7-4.5); POTASSIUM 4.9 mmol/L (3.5-5.1)
[2019-10-21 08:19] LABS: BASO% 0.5 % (0.0-0.8); EOS# 3.34 X1000 (0.0-0.7); EOS% 15.7 % (0.0-10.0); HEMATOCRIT 36.6 % (37.0-47.0); HEMOGLOBIN 11.1 g/dL (12.0-16.0); IMM GRAN# 0.16 X1000 (0.0-0.04); IMM GRAN% 0.7 % (0.0-0.5); LYMPH% 9.8 % (20.5-51.1); MCH 26.6 PG (27-31); MCHC 30.3 g/dL (33-37); MCV 87.6 FL (81-99); MONO# 0.79 X1000 (0.11-0.59); MONO% 3.7 % (1.7-9.3); MPV 8.7 FL (7.4-10.4); NEUT# 14.85 X1000 (1.4-6.5); NEUT% 69.6 % (42.2-75.2); PLT 505 X1000 (130-400); RBC 4.18 XMIL (4.2-5.4); RDW 16.2 % (11.5-14.5); WBC 21.34 X1000 (4.8-10.8)
[2019-10-21 09:26] LABS: BANDS 2 % (0-1); EOS 18 % (1-10); HYPOCHROM 1+; LYMPHS 8 % (21-51); MONO 4 % (1-9); SEGS 68 % (42-75)
[2019-10-21] MEDS ORDERED: HEPARIN 25,000 UNITS/D5W 25,000 UNIT/250 ML IV.SOLN IV SCH (09:30)
[2019-10-21] MEDS: WELLBUTRIN SR PO SCH (09:39)
[2019-10-21] MEDS: PREDNISONE PO SCH (09:39)
[2019-10-21] MEDS: LEXAPRO PO SCH (09:39)
[2019-10-21] MEDS: MYRBETRIQ E.R. PO SCH (09:40)
--- NOTE | 2019-10-21 13:47 | PROGRESS NOTE ---
DATE: 10/21/2019 INTERVAL HISTORY: No acute events overnight. 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 She has not had any bowel movement. She continues to have itchy rash. We discussed about worsening kidney function. We discussed about the wound culture results and likely a contaminant. We discussed about cleaning the macerated right groin skin. We also discussed about worsening left upper extremity swelling and worsening kidney function. VITALS: Currently, temperature 98.5 degrees, pulse 92, respiratory rate 16, blood pressure 126/56, she is saturating 93% on room air. PHYSICAL EXAMINATION: Not in any acute distress. Oral cavity is moist. Lungs: Air entry bilaterally equal. No wheeze, rhonchi, or crackles. Cardiovascular: S1, S2 normal. No murmur, rub, or gallop. Abdomen: Soft, nontender. Mild bilateral lower extremity edema. Right groin incision site has mild serous discharge. No bowel movement. She had 1.6 L of urine output. LABS: Suggestive of leukocytosis. Hemoglobin of 11.1, platelets of 505,000. Elevated BUN of 47, creatinine of 4.3. MICROBIOLOGY: Wound culture growing Staphylococcus hominis and ashley. Previously, urinalysis had urine sodium of 45, creatinine of 59. IMAGING: No new imaging. ASSESSMENT AND PLAN: 1. Drug reaction with eosinophilia and systemic symptom syndrome (DRESS) in the setting of use of intravenous vancomycin. She was also on intravenous daptomycin and cefepime. Continue current dose of oral prednisone, as needed Benadryl, and topical steroids. 2. Acute kidney injury with elevated vancomycin trough level on presentation. Acute tubular necrosis versus allergic interstitial nephritis are possibilities. Continue oral prednisone. A kidney biopsy is planned, likely on October 21. 3. Left upper extremity peripherally inserted central catheter line associated deep venous thrombosis, status post removal of the line. Continue intravenous heparin drip. 4. Right hip arthroplasty in July 2019, status post a suspected wound infection in August 2018. The patient had been on intravenous vancomycin, daptomycin, and cefepime at some point. We have held those antibiotics in the setting of current kidney failure and rash. Her Staphylococcus hominis and ashley are likely a normal skin claire contaminant. She has not had any fever so I am holding antibiotics at the moment. I will keep a close eye over her leukocytosis. 5. Disposition. I will continue to monitor patient on the surgical floor. 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 All of her questions have been answered. cc: Rosalino Rose MD
[2019-10-21] MEDS ORDERED: PRILOSEC PO ONE (14:00)
--- NOTE | 2019-10-21 14:31 | NEPHROLOGY PROGRESS NOTE ---
DATE: 10/21/2019 SUBJECTIVE: She cannot tell if she is any better. She still has a rash that is about the same. She has experienced some nausea and took a dose of ondansetron. No vomiting, however. No shortness of breath. Arm swelling waxes and wanes. OBJECTIVE: Vital Signs: Blood pressure 126/56, heart rate 92, respirations 16, afebrile. Intake. 2.1 L. Output 1.6 L. General: No acute distress. Skin: Warm and dry. Rash is about the same. She does have some fading and thinning of her rash on the distal part of her upper extremities. No scaling. Oropharynx is clear. Neck: Neck veins are about 8 cm with hepatojugular reflux. Heart: Regular. No rubs. Lungs: Equal. No crackles. Abdomen: Soft, nontender. Bowel sounds present. Extremities: Trace edema. No clubbing or cyanosis. IMPRESSION AND PLAN: Renal failure, acute interstitial nephritis versus acute tubular necrosis. She is receiving prednisone 60 mg daily. Plan for kidney biopsy in the morning. I will place her heparin on hold after midnight tonight and make her nothing per oral after midnight as well. Continue the prednisone until biopsy results are available. cc: Issa العلي MD
[2019-10-22] MEDS: HYDROCORTISONE 2.5% LOTION TOP SCH ×3 (02:40→22:35)
[2019-10-22] MEDS: SYNTHROID PO SCH (06:46)
[2019-10-22] MEDS ORDERED: PRILOSEC PO SCH (07:00)
[2019-10-22 07:05] LABS: ALBUMIN 2.8 g/dL (3.5-5.0); CALCIUM 8.2 mg/dL (8.8-10.2); CREATININE 4.8 mg/dL (0.5-0.9); POTASSIUM 5.5 mmol/L (3.5-5.1)
[2019-10-22 07:36] LABS: BASO# 0.21 X1000 (0.0-0.2); BASO% 0.8 % (0.0-0.8); EOS# 4.19 X1000 (0.0-0.7); EOS% 15.7 % (0.0-10.0); HEMATOCRIT 36.7 % (37.0-47.0); HEMOGLOBIN 11.2 g/dL (12.0-16.0); IMM GRAN# 0.31 X1000 (0.0-0.04); IMM GRAN% 1.2 % (0.0-0.5); LYMPH# 3.21 X1000 (1.2-3.4); MCH 26.5 PG (27-31); MCHC 30.5 g/dL (33-37); MONO# 0.79 X1000 (0.11-0.59); MPV 8.3 FL (7.4-10.4); NEUT# 18.03 X1000 (1.4-6.5); NEUT% 67.3 % (42.2-75.2); PLT 518 X1000 (130-400); RBC 4.22 XMIL (4.2-5.4); RDW 16.2 % (11.5-14.5); WBC 26.74 X1000 (4.8-10.8)
[2019-10-22 08:23] LABS: INR 1.05; PROTIME 13.9 Seconds (11.0-16.0)
[2019-10-22 08:26] LABS: PTT 31.7 Seconds (22.3-41.8)
[2019-10-22 09:03] LABS: LYMPHS 10 % (21-51); MONO 4 % (1-9); SEGS 72 % (42-75)
[2019-10-22 09:05] LABS: BANDS 5 % (0-1); EOS 8 % (1-10); HYPOCHROM 1+
--- NOTE | 2019-10-22 11:13 | PROGRESS NOTE ---
DATE: 10/22/2019 INTERVAL HISTORY: No acute events overnight. 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 We discussed about kidney biopsy today. OBJECTIVE: Current Vital Signs: Temperature 97.9 degrees, pulse 61, respiratory rate 17, blood pressure 126/53, saturating 95% room air. General: She has diffuse morbilliform rash affecting entire body. I could also see some vesicle formation around her lips today, which were not there before. HEENT: Oral cavity is moist. No oral candidiasis. Lungs: Air entry bilaterally equal. No wheeze, rhonchi, crackles. Heart: S1, S2 normal. No murmur or gallop. Abdomen: Soft, nontender. Extremities: Mild lower extremity edema. She also has left upper extremity edema. Her heparin drip has been stopped. Neurologic: She is alert and oriented x3. She has not had a bowel movement. LABORATORY DATA: WBC of 26,000, hemoglobin 11.2, platelets 518,000. She has potassium of 5.5, BUN of 53, creatinine 4.8. ASSESSMENT AND PLAN: 1. 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 She has also been on intravenous daptomycin and cefepime. The last dose of antibiotics was around 10/09/2019, and she has been off antibiotics since then. Continue current dose of oral prednisone, as needed Benadryl, and topical steroids. Her leukocytosis and persistent eosinophilia may warrant increase in the steroid dose. 2. Acute kidney injury with elevated vancomycin trough level on presentation. Acute tubular necrosis due to vancomycin use or allergic interstitial nephritis are possibilities. Continue current dose of oral prednisone. A kidney biopsy is planned today. Appreciate Nephrology recommendation. 3. Left upper extremity peripherally-inserted central catheter line-associated deep venous thrombosis, status post removal of the line. Continue intravenous heparin drip. We have held heparin drip starting midnight for kidney biopsy today, and after kidney biopsy, will resume according to Nephrology's recommendation. 4. Right hip arthroplasty in 07/2019, status post suspected wound infection in 08/2018, requiring debridement, irrigation, with implantation of antibiotic beads on 09/14/2019. Her right hip joint wound has two, about 1 cm each opening with some serous discharge. Though the culture is growing Staphylococcus hominis and Chacha, she has not had any fever. Her leukocytosis could be related to steroid use. I am watching her without any antibiotics. 5. Disposition. Continue to monitor the patient inside the hospital as we await kidney biopsy, and monitor her further course. In brief, Nicktrevon had right total hip arthroplasty in 07/2019 for degenerative joint disease, but later on, she had wound dehiscence, and she was readmitted in 08/2019, where she underwent irrigation and debridement by Orthopedics team. At that time, the wound culture was growing diphtheroids, and Infectious Disease team had decided to treat her with intravenous vancomycin and intravenous cefepime. However, a few days into the treatment, she had acute kidney injury, and her creatinine had worsened from being normal, so the vancomycin was changed to daptomycin, but within 2 days of daptomycin, she had generalized body rash, so all of her antibiotics were held. Currently, we are working her up for kidney dysfunction and eosinophilia. cc: Rosalino Rose MD MTDD
[2019-10-22] MEDS: WELLBUTRIN SR PO SCH ×2 (12:04→12:05)
[2019-10-22] MEDS: MYRBETRIQ E.R. PO SCH ×2 (12:04)
[2019-10-22] MEDS: LEXAPRO PO SCH (12:04)
[2019-10-22] MEDS: PREDNISONE PO SCH ×2 (12:04→12:05)
--- NOTE | 2019-10-22 12:24 | Diag Imaging Result Doc PS360 ---
EXAM: CT RENAL BX, PERCUTAN 10/21/2019 HISTORY: CALVIN TECHNIQUE: CT-guided percutaneous biopsy of the right kidney. COMMENT: The risks and benefits of the procedure including the possibility of bleeding, infection, reaction to lidocaine, or arteriovenous fistula formation were discussed with the patient and she agreed to the procedure. Following sterile preparation the skin over the left posterior flank and administration 1% lidocaine to the skin and deeper soft tissues, an 18-gauge coaxial Temno core biopsy needle was employed to obtain five cores from the posterior lateral right kidney. There are no immediate complications. The specimen was judged to be adequate by Dr. Cheyanne Cullen. IMPRESSION: Successful percutaneous right renal biopsy. Electronically signed by Kendall Mccoy 10/22/2019 12:21 PM
--- NOTE | 2019-10-22 15:48 | PROVIDER PROGRESS NOTE ---
Progress Note Subjective: Voices generalized itching that has not gotten any better. She denies any nausea and vomiting today. No increased shortness of breath. Objective: temperature 98.9, pulse 97, respirations 20, blood pressure 133/62, O2 sat 100% on room air. General: Obese White female lying in bed in no acute distress. HEENT: normocephalic, atraumatic, pupils equal and reactive, mucous membranes moist. Skin: diffuse maculopapular rash. Non weeping. Neck: supple, 8cm JVD with hepatojugular reflux. Cardiovascular: S1S2, regular rate and rhythm. No murmur or gallop. Respiratory: lungs clear with equal air entry anteriorly Abdomen: soft, obese, nontender, nondistended. Bowel sounds present. : not inspected Extremities: 2+ pitting edema to BLE. Generalized edema to left upper arm with PICC in place. Neurological: alert and oriented to person place and time. Labs: WBC 26.74, hemoglobin 11.2, hematocrit 36.7, platelet count 518, sodium 133, potassium 5.5, chloride 100, carbon dioxide 18, BUN 53, creatinine 4.8. Intake 604, output 1400 with three unmeasured voids. Impression: Acute interstitial nephritis versus acute tubular necrosis. Her BUN and creatinine continue to rise. She remains on prednisone 60 mg daily. She is scheduled for a kidney biopsy this morning. Her heparin was placed on hold at midnight. We will await the biopsy results to determine further plan of care. Blood pressure. In goal Fluid volume. Expanded. Limit intake. Continue to monitor. Anemia. Stable. Hyperkalemia. Lactulose ordered by primary, this will also help with her constipation. Nutrition. NPO last night. Physical deconditioning. PT in place. Encouraged to ambulate. Medication review. No changes.
[2019-10-22 16:33] LABS: HEMATOCRIT 34.3 % (37.0-47.0); HEMOGLOBIN 10.5 g/dL (12.0-16.0)
[2019-10-22] MEDS ORDERED: D50W SYRINGE IV ONE (17:34)
[2019-10-22] MEDS ORDERED: ALBUTEROL 0.5% INH CONC FOR HYPERKALEMIA INH ONE (17:34)
[2019-10-22] MEDS ORDERED: HUMALOG IV ONE (17:34)
[2019-10-22] MEDS ORDERED: CALCIUM GLUCONATE 2 GM in NS 100 ML IV ONE (17:35)
[2019-10-22] MEDS ORDERED: LACTULOSE PO STA (17:37)
[2019-10-22] MEDS ORDERED: DULCOLAX PR ONE (17:37)
[2019-10-22] MEDS ORDERED: ALBUTEROL 0.5% INH CONC FOR HYPERKALEMIA ONE (18:10)
[2019-10-22] MEDS: DULCOLAX PR SCH ×2 (18:16→22:34)
[2019-10-22] MEDS: LACTULOSE PO SCH ×2 (18:16→22:35)
[2019-10-22] MEDS: MYCELEX TROCHE PO SCH ×2 (18:17→22:32)
--- NOTE | 2019-10-22 20:09 | INFECTIOUS DISEASE PROGRESS NO ---
DATE: 10/22/2019 PRESENT ILLNESS: The patient is being treated for fever and diffuse rash with acute kidney injury due to vancomycin toxicity. She is status post right total hip replacement with a subsequent wound dehiscence, debridement and antibiotic bead placement. She is afebrile. MEDICATIONS: At this point, antibiotics continue to be on hold and she is receiving steroids. PHYSICAL EXAMINATION: Vital Signs: Temperature is 98.9 degrees, pulse rate 91, respiratory rate 20, blood pressure 138/62, O2 saturations 98% on room air. General: This is a acutely ill- appearing middle-aged female. She is sitting up in bed currently in no acute distress. HEENT: Atraumatic, normocephalic. Oral mucous membranes are pink and moist with mild white coating to the mid-back tongue. Conjunctivae are pink. Neck: Supple. Trachea is midline. Cardiovascular: Heart rate is regular with S1-S2 noted. Respiratory: Bilateral lung sounds are clear to auscultation. No work of breathing is noted. Abdomen: Soft, obese, nontender to palpation. Bowel sounds are active. Neurologic: She is awake, alert, oriented and able to move around the room with minimal assistance. Integumentary: Skin is warm and dry with a diffuse erythematous rash noted, which is more concentrated. The PICC line to the left upper arm has been removed. She has an incision to the right anterior hip which has 2 small open areas that are draining very minimal amounts of clear drainage. LABORATORY AND X-RAY: Today her white count is 26.74, hemoglobin 11.2, platelet count 518,000. Creatinine is 4.8 with a GFR of 9. Her right hip has grown a Staph hominis and Chacha parapsilosis. Today she has had a CT-guided renal biopsy. 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 At this point the right hip replacement does not seem to be giving her any problems. I have spoken with Dr. Rose and the plan is to hold her antibiotics for right now. She does have an early candidiasis developing to her tongue and her mouth has been bothering her, so we will go ahead and order some Mycelex Kirk. She has a Chacha that grew to her hip. We may at some point want to give her fluconazole or micafungin, and possibly doxycycline for the Staph hominis that grew to her hip, but for now we will hold antimicrobials, based on her other current issues. She is having a lot of pruritus, but has not had fever. She is on 60 mg of prednisone daily, which would explain the leukocytosis. Unfortunately, her creatinine continues to rise and her rash is not dissipating. We will continue to watch her, anticipating the pathology report and plans from Dr. العلي. COMORBIDITIES: Include obesity, degenerative joint disease, depression and anxiety. Dictated by RANI Rick for Isaiah Murcia MD cc: Isaiah Murcia MD [facility]
[2019-10-22 21:48] LABS: HEMATOCRIT 31.7 % (37.0-47.0); HEMOGLOBIN 9.9 g/dL (12.0-16.0)
[2019-10-23] MEDS: BENADRYL PO PRN (00:31)
[2019-10-23 06:36] LABS: BASO# 0.36 X1000 (0.0-0.2); BASO% 1.3 % (0.0-0.8); EOS# 3.19 X1000 (0.0-0.7); EOS% 11.3 % (0.0-10.0); HEMATOCRIT 31.8 % (37.0-47.0); HEMOGLOBIN 9.7 g/dL (12.0-16.0); IMM GRAN# 0.46 X1000 (0.0-0.04); IMM GRAN% 1.6 % (0.0-0.5); LYMPH% 16.6 % (20.5-51.1); MCH 26.8 PG (27-31); MCHC 30.5 g/dL (33-37); MCV 87.8 FL (81-99); MONO# 1.35 X1000 (0.11-0.59); MONO% 4.8 % (1.7-9.3); MPV 8.2 FL (7.4-10.4); NEUT# 18.28 X1000 (1.4-6.5); NEUT% 64.4 % (42.2-75.2); PLT 462 X1000 (130-400); RBC 3.62 XMIL (4.2-5.4); RDW 16.5 % (11.5-14.5); WBC 28.34 X1000 (4.8-10.8)
[2019-10-23 06:47] LABS: ALB/GLOB RATIO 1.2; ALBUMIN 2.8 g/dL (3.5-5.0); CALCIUM 8.8 mg/dL (8.8-10.2); POTASSIUM 5.4 mmol/L (3.5-5.1); TOTAL BILIRUBIN 0.15 mg/dL (0.20-1.00); TOTAL PROTEIN 5.1 g/dL (6.3-8.3)
[2019-10-23] MEDS: SYNTHROID PO SCH (07:01)
[2019-10-23 07:19] LABS: ALBUMIN 2.7 g/dL (3.5-5.0); CALCIUM 8.6 mg/dL (8.8-10.2); CREATININE 4.9 mg/dL (0.5-0.9); PHOSPHORUS 4.8 mg/dL (2.7-4.5); POTASSIUM 5.7 mmol/L (3.5-5.1)
[2019-10-23 07:45] LABS: BANDS 14 % (0-1); EOS 4 % (1-10); LYMPHS 14 % (21-51); MONO 2 % (1-9); SEGS 60 % (42-75)
[2019-10-23 07:46] LABS: HYPOCHROM 1+; POIKILOCYTOSIS 1+
[2019-10-23] MEDS: DULCOLAX PR SCH ×2 (10:55→20:59)
[2019-10-23] MEDS: MYRBETRIQ E.R. PO SCH (10:59)
[2019-10-23] MEDS: LEXAPRO PO SCH (10:59)
[2019-10-23] MEDS: WELLBUTRIN SR PO SCH (10:59)
[2019-10-23] MEDS: PREDNISONE PO SCH (10:59)
[2019-10-23] MEDS: HYDROCORTISONE 2.5% LOTION TOP SCH (11:00)
[2019-10-23] MEDS: MYCELEX TROCHE PO SCH ×3 (11:00→20:58)
[2019-10-23] MEDS: LACTULOSE PO SCH ×2 (11:00→20:58)
[2019-10-23] MEDS ORDERED: KENALOG 0.1% OINTMENT TOP SCH (13:00)
[2019-10-23] MEDS: LOKELMA POWDER PACKET PO SCH ×2 (13:17→23:20)
[2019-10-23 13:55] LABS: INR 1.1; PROTIME 14.3 Seconds (11.0-16.0)
[2019-10-23 14:13] LABS: PTT HEPARIN PROTOCOL 27.9 Seconds
[2019-10-23] MEDS ORDERED: HEPARIN IV PRN (15:15)
[2019-10-23] MEDS ORDERED: HEPARIN IV ONE (15:15)
[2019-10-23] MEDS ORDERED: HEPARIN 25,000 UNITS/D5W 25,000 UNIT/250 ML IV.SOLN IV SCH (15:30)
--- NOTE | 2019-10-23 18:50 | PROGRESS NOTE ---
DATE: 10/23/2019 SUBJECTIVE: The patient is sitting up in bed. She states that her rash has improved. However, she complains of severe itching everywhere. She reports that she had a bowel movement today. No other complaints noted. OBJECTIVE: Vital Signs: Temperature 98.5 degrees, blood pressure 150/83, heart rate 99, respirations 20, O2 saturations 98% on room air, intake 480, output 1.8 L. General: This is a morbidly obese female sitting up in bed in no acute distress. Skin: The patient has a diffuse erythematous rash affecting her entire body. No vesicles or open wounds noted. HEENT: Normocephalic, atraumatic. Oral mucosa is moist. No lesions noted. Heart: S1, S2 normal. Regular rate and rhythm. Lungs: Equal air entry bilaterally. No wheezing, no rales, no rhonchi. Abdomen: Positive bowel sounds. Soft, nontender, nondistended. Extremities: Trace edema in the left upper extremity. No edema noted in the lower extremities. Neuro: The patient is alert and oriented x3. LABS: White blood cell count 28, hemoglobin 9.7, hematocrit 31, platelets 462,000. Sodium 132, potassium 5.4, chloride 99, CO2 21, BUN 58, creatinine 5, glucose 107, phosphorus 4.8. ASSESSMENT AND PLAN: 1. Suspected drug reaction with eosinophilia and systemic symptoms syndrome. The likely culprits are vancomycin and daptomycin. We will continue with supportive care. The patient is currently on high-dose steroid therapy as well as Benadryl. Will add triamcinolone ointment to help with the itching. Will also try a trial of low dose gabapentin. The eosinophilia has improved. 2. Acute kidney injury. Likely acute tubular necrosis versus acute interstitial nephritis. The kidney biopsy pathology is currently pending. Urine output is adequate. BUN/Cr are stable. Management as per Dr. العلي. 3. Left upper extremity deep vein thrombosis secondary to peripherally inserted central catheter line status post removal. The patient has been started back on the heparin drip. Once it is appropriate, the patient will be transitioned to Eliquis. 4. Right hip arthroplasty status post wound infection requiring debridement and irrigation with implantation of antibiotic beads. The patient's wound culture is growing Staphylococcus hominis and Chacha parapsilosis. At this time the patient is off of antibiotics and being monitored closely. 5. Leukocytosis. This is likely secondary to steroid usage. We will continue to monitor the counts closely. 6. Hyperkalemia. Stable. 7. Metabolic acidosis. Stable. 8. Morbid obesity. Aware. 9. Constipation. Continue on laxative therapy. cc: Helen Tyson MD MTDD
--- NOTE | 2019-10-23 19:20 | INFECTIOUS DISEASE PROGRESS NO ---
DATE: 10/23/2019 PRESENT ILLNESS: The patient has been admitted due to a diffuse rash with acute kidney injury due to vancomycin toxicity. She also had a fever on admission but has been afebrile for the last 48 hours. There is a mild oral candidiasis. She is status post right total hip replacement with subsequent debridement and antibiotic bead placement. The hip has most recently grown Staphylococcus hominis and a Ashley parapsilosis. MEDICATIONS: Antibiotics are currently on hold and she is receiving prednisone 60 mg by mouth daily. PHYSICAL EXAMINATION: Vital Signs: Temperature is 98.5 degrees, pulse rate 99, respiratory rate 20, blood pressure 150/83. O2 saturation is 98% on room air. General: This is an acutely ill- appearing, middle-aged female. She is sitting up in bed, currently in no acute distress. HEENT: Atraumatic, normocephalic. Oral mucous membranes are pink and moist with a mild white coating to the back of her tongue. Conjunctivae are pale pink. Neck: Supple. Trachea is midline. Respiratory: Bilateral lung sounds are clear to auscultation. No work of breathing is noted. Cardiovascular: Heart rate is regular with S1-S2 noted. Abdomen: Soft, obese and nontender to palpation. Bowel sounds are active. Integumentary: Skin is warm and dry with a diffuse erythematous rash. More concentrated in the face and trunk and is starting to dissipate in the area of the extremities. There is an incision to the right anterior hip with a 1 cm round open pink/white wound with a small amount of clear drainage noted and a small area of white residue to the lower part of the incision. LABORATORY AND X-RAY: Today her white count is 28.34, hemoglobin 9.7, platelet count 462,000. Creatinine is 5 with a GFR of 9, total bilirubin is 0.15, AST 17, ALT 39, alkaline phosphatase 58. No imaging reports today. There is a pathology report pending on the renal biopsy done yesterday. 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 We are continuing to hope that her creatinine will start trending down. It does not seem that the right hip is a major issue at this point, and she is not complaining of pain or having any fever. For now, we will continue to hold her antibiotics but continue the Mycelex allyson for her oral candidiasis. Today she states her mouth is feeling much better. At some point it may be appropriate to start her on fluconazole and doxycycline for the ashley and Staphylococcus hominis, but for now we will hold all antimicrobials. There is a leukocytosis, but she is receiving high-dose steroids. COMORBIDITIES: For Dr. Ortiz include obesity, degenerative joint disease, depression and anxiety. Dictated by RANI Rick for Isaiah Murcia MD cc: Isaiah Murcia MD [facility]
[2019-10-23] MEDS ORDERED: NON-FORMULARY MED TOP PRN (19:44)
--- NOTE | 2019-10-23 20:02 | PROVIDER PROGRESS NOTE ---
Progress Note Subjective: patient is sitting up in the bed and voicing that she feels better. She has been up to her bathroom performing activities of daily living without shortness of breath. She still has itching. Objective: temperature 98.2, pulse 85, respirations 20, blood pressure 137/64, 02 sat 100% on room air. General: Obese White female lying in bed in no acute distress. HEENT: normocephalic, atraumatic, pupils equal and reactive, mucous membranes moist. Skin: diffuse maculopapular rash. Blisters to left hand. Non-weeping. Neck: supple, 8cm JVD with hepatojugular reflux. Cardiovascular: S1S2, regular rate and rhythm. No murmur or gallop. Respiratory: lungs clear with equal air entry anteriorly Abdomen: soft, obese, nontender, nondistended. Bowel sounds present. : not inspected Extremities: 2+ pitting edema to BLE. Generalized edema to left arm. Neurological: alert and oriented to person place and time. Labs: WBC 28.34, hemoglobin 9.7, hematocrit 31.8, platelet count 462, sodium 132, potassium 5.4, chloride 199, carbon dioxide 21, BUN 58, creatinine 5.0, albumin 2.8. Intake 480, output 1800. Impression: Acute interstitial nephritis vs. Acute tubular necrosis. Her BUN and creatinine are essentially the same today. We are still awaiting biopsy results. She continues her prednisone 60 mg. We will continue to monitor. Blood pressure. In goal Fluid volume. Expanded. Limit intake. Continue to monitor. Anemia. Stable. Hyperkalemia. We will start her on lokelma 10mg BID. Nutrition. Adequate. Physical deconditioning. PT in place. Encouraged to ambulate. Medication review. Clotrimazole started
[2019-10-23] MEDS ORDERED: NEURONTIN PO SCH (21:00)
[2019-10-24] MEDS ORDERED: HEPARIN 25,000 UNITS/D5W 25,000 UNIT/250 ML IV.SOLN IV SCH (03:45)
[2019-10-24] MEDS: LOKELMA POWDER PACKET PO SCH (05:15)
[2019-10-24 07:23] LABS: BASO# 0.37 X1000 (0.0-0.2); BASO% 1.2 % (0.0-0.8); EOS# 5.87 X1000 (0.0-0.7); EOS% 19.6 % (0.0-10.0); HEMATOCRIT 29.6 % (37.0-47.0); HEMOGLOBIN 8.9 g/dL (12.0-16.0); IMM GRAN# 0.92 X1000 (0.0-0.04); IMM GRAN% 3.1 % (0.0-0.5); LYMPH# 6.36 X1000 (1.2-3.4); LYMPH% 21.2 % (20.5-51.1); MCH 26.7 PG (27-31); MCHC 30.1 g/dL (33-37); MCV 88.9 FL (81-99); MONO# 1.95 X1000 (0.11-0.59); MONO% 6.5 % (1.7-9.3); MPV 8.4 FL (7.4-10.4); NEUT# 14.53 X1000 (1.4-6.5); NEUT% 48.4 % (42.2-75.2); PLT 444 X1000 (130-400); RBC 3.33 XMIL (4.2-5.4); RDW 16.6 % (11.5-14.5)
[2019-10-24] MEDS: SYNTHROID PO SCH (07:36)
[2019-10-24 07:58] LABS: ALBUMIN 2.7 g/dL (3.5-5.0); CALCIUM 8.6 mg/dL (8.8-10.2); CREATININE 4.9 mg/dL (0.5-0.9); PHOSPHORUS 5.3 mg/dL (2.7-4.5); POTASSIUM 5.5 mmol/L (3.5-5.1)
[2019-10-24 08:01] VITALS: BP 177/85
[2019-10-24 08:13] LABS: BASO 1 % (0-1); EOS 21 % (1-10); LYMPHS 22 % (21-51); MONO 8 % (1-9); SEGS 48 % (42-75)
[2019-10-24] MEDS ORDERED: ELIQUIS PO SCH (09:00)
--- NOTE | 2019-10-24 09:15 | PROGRESS NOTE ---
DATE: 10/24/2019 SUBJECTIVE: The patient is sitting up in bed. She states that she feels like her rash is getting better. The itching is unchanged. She states that she has been urinating more. OBJECTIVE: Vital Signs: Temperature 98.4 degrees, blood pressure 177/85, heart rate 93, respirations 20, O2 saturation 99% on room air. General: This is a morbidly obese female sitting up in bed in no acute distress. Heart: S1, S2 normal. Regular rate and rhythm. Lungs: Clear to auscultation bilaterally. No wheezing. No rales. No rhonchi. Abdomen: Positive bowel sounds. Soft, nontender, obese. Extremities: 1+ edema bilaterally. The patient has an erythematous rash all over her body that is pruritic. Neurologic: The patient is alert and oriented x3. LABS: White blood cell count 30, hemoglobin 8.9, hematocrit 29, platelets 444,000. Sodium 137, potassium 5.5, chloride 101, CO2 23, BUN 59, creatinine 4.9, glucose 89, phosphorus 5.3. ASSESSMENT AND PLAN: 1. Suspected DRESS syndrome. Continue with steroid therapy and supportive care. 2. Acute kidney injury. Likely ATN versus acute interstitial nephritis. The BUN and creatinine are stable. The kidney biopsy pathology is currently pending. Management as per Dr. العلي. 3. Left upper extremity DVT secondary to a PICC line, status post removal. We will start the patient on Eliquis and monitor closely. 4. Right hip arthroplasty, status post wound infection requiring debridement and irrigation with implantation of antibiotic beads. The patient's wound culture is growing Staphylococcus hominis and Chacha parapsilosis. At this time, the patient is being watched off of antibiotic therapy. 5. Leukocytosis. White blood cell count continues to rise; however, the patient is afebrile. She is also on high dose steroids. We will continue to monitor closely. 6. Hyperkalemia. Stable. The patient is on Lokelma. 7. Metabolic acidosis. Stable. 8. Morbid obesity. Aware. 9. Constipation. Continue on laxative therapy. 10. Disposition. The patient will be discharged once okay with all the specialists. cc: Helen Tyson MD
[2019-10-24] MEDS: MYRBETRIQ E.R. PO SCH (09:44)
[2019-10-24] MEDS: LACTULOSE PO SCH (09:44)
[2019-10-24] MEDS: MYCELEX TROCHE PO SCH (09:45)
[2019-10-24] MEDS: LEXAPRO PO SCH (09:45)
[2019-10-24] MEDS: PREDNISONE PO SCH (09:45)
[2019-10-24] MEDS: WELLBUTRIN SR PO SCH (09:46)
[2019-10-24] MEDS: DULCOLAX PR SCH (09:47)
--- NOTE | 2019-10-24 16:31 | PROVIDER PROGRESS NOTE ---
Progress Note Subjective: She voices feeling better. She says that she has had an ample amount of urine output in the last 24 hours. She is eager to go home. Objective: temperature 98.4, pulse 93, respirations 20, blood pressure 177/85, 02 sat 99% on room air. General: Obese White female lying in bed in no acute distress. HEENT: normocephalic, atraumatic, pupils equal and reactive, mucous membranes moist. Skin: diffuse maculopapular rash. Improving. Less red and raised. Neck: supple, 8cm JVD with hepatojugular reflux. Cardiovascular: S1S2, regular rate and rhythm. No murmur or gallop. Respiratory: lungs clear with equal air entry anteriorly Abdomen: soft, obese, nontender, nondistended. Bowel sounds present. : not inspected Extremities:1+ pitting edema to BLE. Generalized edema to left arm. Neurological: alert and oriented to person place and time. Labs: WBC 30, hemoglobin 8.9, hematocrit 29.6, platelet count 444, sodium 137, potassium 5.5, chloride 101, carbon dioxide 23, BUN 59, creatinine 4.9. Intake 1240, output 4200. Impression: Acute interstitial nephritis vs. Acute tubular necrosis. Her BUN and creatinine have plateaued. She appears to be in the diuretic phase of her injury with a 4.2L urine output. We anticipate her anticoagulation bridge to begin today. No change in plan of care. Blood pressure. Elevated x1. Normally she is in target. Fluid volume. Expanded. Improved. Limit intake. Continue to monitor. Anemia. Stable. Hyperkalemia. Remains on lokelma 10mg BID. Nutrition. Adequate. Physical deconditioning. PT in place. Encouraged to ambulate. Medication review. Heparin discontinued and eliquis started. Biopsy with severe allergic interstitial nephritis. Continue prednisone. Daily labs.
--- NOTE | 2019-10-25 10:44 | DISCHARGE SUMMARY ---
ADMISSION DATE: 10/17/2019 DISCHARGE DATE: 10/24/2019 FINAL DISCHARGE DIAGNOSES: 1. Drug rash with eosinophilia and systemic symptoms (DRESS) syndrome. 2. Acute kidney injury, likely secondary to acute tubular necrosis versus acute interstitial nephritis. 3. Left upper extremity deep vein thrombosis secondary to peripherally inserted central catheter line insertion, status post removal. 4. Steroid-induced leukocytosis. 5. Right hip arthroplasty, status post wound infection requiring debridement and irrigation with implantation of antibiotic beads with a Chacha and Staphylococcus hominis infection. 6. Persistent hyperkalemia. 7. Metabolic acidosis. 8. Morbid obesity. 9. Constipation. 10. Hypothyroidism. CONSULTATIONS: 1. Nephrology consultation with Dr. العلي. 2. Orthopedic consultation with Dr. Estevez. IMAGING STUDIES: 1. A venous ultrasound of both legs performed on 10/17/2019, which revealed no evidence of superficial venous thrombosis or DVT. 2. Portable chest x-ray performed on 10/17/2019, which revealed no acute disease. 3. Renal ultrasound performed on 10/17/2019, which revealed no evidence of obstructive uropathy. PROCEDURES: CT guided renal biopsy performed on 10/21/2019. HISTORY AND HOSPITAL COURSE: Nicktrevon is a 59-year-old female with a history of a recent right hip anterior arthroplasty complicated by wound dehiscence, as well as wound infection requiring debridement with irrigation and implantation of antibiotic beads performed on 09/14/2019, with a culture that ultimately grew out Staphylococcus hominis and Chacha, who presented with a chief complaint of fever, sore throat, and chills, as well as a diffuse erythematous pruritic rash. Initial laboratory studies revealed a white blood cell count of 7.2 with eosinophilia of 14%. Also, the patient was noted to be in acute kidney injury with a BUN of 29 and a creatinine of 3.2. In light of these findings, the patient was admitted to the hospitalist service for further treatment and evaluation. Nephrology and Orthopedic Surgery were consulted, and Pinky with Infectious Disease also was consulted. A renal ultrasound was done that was noted to be unremarkable. Given the patient's recent exposure to daptomycin, as well as vancomycin, it was thought that these were the likely culprits of the patient's presentation. Given the clinical findings, it was thought that the patient was suffering from DRESS syndrome. The patient's BUN and creatinine continued to rise for several days in the hospital and finally plateaued at 4.9. The patient had a wound culture done that grew out Staphylococcus hominis, as well as Chacha parapsilosis. Given the patient's rash and overall renal failure, it was decided to hold off on antibiotic therapy until the patient's rash improved. With the initiation of steroid therapy, the patient's white blood cell count started to rise. The patient's white blood cell count got as high as 30,000 while on high-dose steroid therapy. The patient was also noted to have persistent hyperkalemia which was treated with Lokelma. A CT- guided renal biopsy was performed on 10/21/2019. At the time of this dictation, the results of the renal biopsy are currently pending. The patient's BUN and creatinine finally stabilized at 59 and 4.9 respectively, and also the patient's potassium stabilized at about 5.5. The patient stated that she felt a lot better and stated that she wished to be discharged home. This was discussed with Dr. العلي, who was in agreement with discharge, and stated that he would follow up closely with the patient and would call her personally with the results of the renal biopsy to discuss further treatment options. The patient was also advised to follow up with Dr. Ventura to discuss her hip wound and to discuss future initiation of antibiotic therapy. The patient was also noted to have a left upper extremity DVT secondary to the PICC line that she had for IV antibiotics prior to admission. During the hospital stay, the patient was treated with a heparin drip. Once the patient's creatinine stabilized, she was transitioned to Eliquis. DISCHARGE MEDICATIONS: 1. Eliquis 5 mg oral twice a day x3 months. 2. Mycelex troches 10 mg oral after meals and at bedtime. 3. Lexapro 10 mg oral daily. 4. Synthroid 150 mcg oral daily. 5. Myrbetriq 25 mg oral daily. 6. Prednisone 60 mg oral daily. 7. Kayexalate 30 grams oral daily. DISCHARGE DIET: Renal diet. ACTIVITY: As tolerated. FOLLOWUP INSTRUCTIONS: The patient was advised to call Dr. العلي's office to arrange for followup and routine laboratory studies. Dr. العلي will contact the patient directly to discuss the results of the renal biopsy. The patient will also need to follow up with Dr. Ventura within 1 to 2 weeks to discuss further antibiotic treatment for her wound infection. The patient will need to follow up with Dr. Estevez as scheduled by his clinic. cc: Helen Tyson MD
[2019-10-26] MEDS ORDERED: ELIQUIS PO SCH (21:00)
--- NOTE | 2019-10-30 20:20 | Extremity Venous Study ---
PROCEDURE NAME: Venous U/S Left Arm - 10/19/2019 STUDY: Left upper extremity venous duplex, and color flow imaging study using the GE Vivid E9 ultrasound system with a 9 L-D transducer. REFERRING PHYSICIANS: Dr. Pinky Spaulding. A 59-year-old female. INFORMATION TECHNOLOGY ACCOUNT MANAGER: Nelda Toledo RVT. INDICATIONS: Left upper extremity pain and swelling. A PICC line has been in the left upper extremity. Rule out deep venous thrombosis. FINDINGS: The left subclavian and axillary vein had deep venous thrombosis within it as did the brachial vein on the left. There is superficial venous thrombosis involving the left basilic vein. INTERPRETATION: Acute deep venous thrombosis involving the left subclavian and axillary vein extending into the brachial vein on the left. There is also a superficial venous thrombosis involving the basilic vein in a patient who has had a PICC line in place. cc: Shereen Silva MD
== END 2019-10-24 11:11 | disposition home or self-care (01) | DRG 814 ==
LOC: SUATTDRO 13:41 → DIRADM 13:41 → EDIPHOLD 14:06 → 4N 18:45
PROVIDERS: ATTEND Internal Medicine